=== PATIENT | female | born 1950 | race Caucasian/White ===

== ENCOUNTER 2024-03-30 08:32 | Outpatient (CLI) | payer MEDICARE, OTHER, SELFPAY ==
--- NOTE | ~2024-03-30 | MM_ITS ---
EXAMINATION: MM screening sandra BI w nely HISTORY: Screening TECHNIQUE: Craniocaudal and mediolateral oblique 3-D tomosynthesis images were obtained and synthetic 2-D images were generated. CAD analysis was submitted and interpreted. COMPARISON: No prior mammogram is available for comparison at this institution. BREAST PARENCHYMAL COMPOSITION: Not dense: There are scattered areas of fibroglandular density. FINDINGS: There is no evidence of suspicious mass, calcification, or architectural distortion to sugg est malignancy in either breast. There has been no suspicious interval change. IMPRESSION: 1. No mammographic evidence of malignancy. 2. Recommend routine screening mammography in one year. BI-RADS Category 1: Negative Reviewed, dictated and finalized at location B. NE PAINTER
== END 2024-03-30 08:33 | disposition home or self-care (01) ==
PROVIDERS: Visit Provider Internal Medicine
DX: Z12.31 Encounter for screening mammogram for malignant neoplasm of breast (principal)
CPT/HCPCS: 77063; 77067

== ENCOUNTER 2024-05-18 08:54 | Outpatient (CLI) | payer MEDICARE, OTHER, SELFPAY ==
--- NOTE | ~2024-05-18 | DEXA_ITS ---
Bone Density Report Name: LUMA ACOSTA Age: 73 Sex: Female Ethnicity: White Date of : 1950 Indication: postmenopausal; screening for osteoporosis; Referring Provider: RASHAUN, MICHEAL Study: Bone densitometry was performed. Exam Date: May 18, 2024 Accession number: [id number] Bone Density: Region BMD T-score Z-score Classification AP Spine(L1-L4) 0.473 -5.2 -2.9 Osteoporosis Femoral Neck (Left) 0.524 -2.9 -0.9 Osteoporosis Total Hip (Left) 0.713 -1.9 -0.2 Osteopenia Femoral Neck (Right) 0.591 -2.3 -0.3 Osteopenia Total Hip (Right) 0.750 -1.6 0.1 Osteopenia Total Hip Mean 0.731 -1.8 -0.1 Osteopenia World Health Organization criteria for BMD impression classify patients as: Normal (T-score at or above -1.0), Osteopenia (T-score between -1.0 and -2.5), or Osteoporosis (T-score at or below -2.5). 10-year Fracture Risk: FRAX not reported because: Some T-score for Spine Total or Hip Total or Femoral Neck at or below -2.5 Clinical Information Provided by Patient: Menopause Age: 50 Impression: The patient has osteoporosis, based on the Total Spine T-score. Discussion: HIGH RISK OF FRACTURE. BONE DENSITY IS UNDESIRABLY LOW AT ONE OR MORE SKELETAL SITES, CONSISTENT WITH OSTEOPOROSIS. ALSO, BONE DENSITY IS LOWER THAN EXPECTED FOR AGE AND SEX AT ONE OR MORE SKELETAL SITES; RECOMMEND A DILIGENT SEARCH FOR SECONDARY CAUSES OF BONE LOSS. This patient's lowest T-score meets the World Health Organization's (WHO) criteria for osteoporosis at one or more sites (T-score -2.5 or below). In untreated patients, the risk of osteoporotic fracture increases approximately two-fold for each 1.0 SD decrease in T-score. Low bone density is not the only risk factor for fracture; also consider factors such as patient's age, frailty or poor health, risk of falling, risk of injury, previous osteoporotic fracture, family history of osteoporosis, cigarette smoking, low body weight, etc. Not everyone with low bone mineral density has osteoporosis; osteomalacia and other metabolic bone disorders should also be considered. Patients who have osteoporosis should be evaluated for specific diseases and conditions (secondary causes) that may cause or contribute to bone loss. The [place] Association of Clinical Endocrinologists (AACE) and National Osteoporosis Foundation (NOF) recommend pharmacologic intervention for all postmenopausal women whose T-score is in this range. Also, this patient's bone mineral density is below the range considered normal for healthy age-, sex-, and race-matched controls at least one site (Z-score -2.0 or below). This warrants careful evaluation for diseases and conditions that may contribute to accelerated bone loss. The patient should follow a healthful lifestyle (good nutrition with adequate calcium and vitamin D, and appropriate weight-bearing exercise). Follow-Up: Consider a repeat BMD and Vertebral Fracture Assessment (VFA) exam in 2 years or sooner if medically necessary, to reassess this patient's status. Reported by: BRISA on 05/18/2024 9:43:00 AM. Reviewed, dictated and finalized at location APatrice SHETTY
--- OUTSIDE RECORDS SUMMARY | 2024-05-20 16:28 | XMS_ITS | Clinical Summary ---
Author Organization [facility] Address [facility]. [place], [place] [address] [place] [address] Care Team Providers Care Clerical Transcriber Name Role Phone Walker Sanches MD Primary Care Provider Allergies No known active allergies Medications ketoconazole (NIZORAL) 2 % creamIndications:S eborrheic dermatitis Apply topically daily. 60 g 1 4 Active triamcinolone (KENALOG) 0.1 % creamIndications:E czema, unspecified type Apply topically 2 (two) times daily. Apply on the back on arms and back and legs. 453.6 g 4 Active atorvastatin (LIPITOR) 10 MG tabletIndications: ASCVD (arteriosclerotic cardiovascular disease),Mixed hyperlipidemia Take 1 tablet (10 mg total) by mouth nightly at bedtime. 90 tablet 1 4 Active losartan (COZAAR) 25 MG tabletIndications: Primary hypertension Take 1 tablet (25 mg total) by mouth daily. 90 tablet 1 4 Active omeprazole (PRILOSEC) 40 MG capsuleIndications :Gastroesophageal reflux disease without esophagitis Take 1 capsule (40 mg total) by mouth daily. 90 capsule 4 Active Active Problems No known active problems Social History Tobacco Use Types Packs/Day Years Used Date Smoking Tobacco: Never Smokeless Tobacco: Never Tobacco Cessation:Counseling Given: Yes Comments:Counseled by Dr. Sanches. AUDIT-C Answer Date Recorded Q1: How often do you have a drink containing alcohol? Never 10/24/2023 Q2: How many drinks containi ng alcohol do you have on a typical day when you are drinking? Patient does not drink Q3: How often do you have si x or more drinks on one occasion? Never 10/24/2023 Comments Unknown Sex and Gender Information Value Date Recorded Sex Assigned at Not on file Legal Sex Female 10:07 AM CDT Gender Identity Not on file Sexual Orientation Not on file Last Filed Vital Signs Vital Sign Reading Time Taken Comments Blood Pressure 143/86 12/24/2023 9:54 AM CDT Pulse 62 12/24/2023 9:21 AM CDT Temperature 36.7 ??C (98 ??F) 12/24/2023 9:21 AM CDT Respiratory Rate 16 12/24/2023 9:21 AM CDT Oxygen Saturation 97% 12/24/2023 9:21 AM CDT Inhaled Oxygen Concentration - - Weight 72.7 kg (160 lb 3.2 oz) 12/24/2023 9:21 A M CDT Height 165.1 cm (5' 5 ) 12/24/2023 9:21 AM CDT Body Mass Index 26.66 12/24/2023 9:21 AM CDT Plan of Treatment Health Maintenance Due Date Last Done Comments Colorectal Cancer Screening Colonoscopy (10 Years) 1950 PHQ-2 (Physician [place]) 1962 DTaP, Tdap and Td Vaccines (1 - Tdap) 1969 Zoster Vaccines (1 of 2) 2000 RSV Immunization or 60+ Years (1 - Risk 60-74 years 1-dose series) 2010 Annual Medicare Wellness Visit 07/27/2015 Dexa Scan (General) 07/27/2015 COVID-19 Vaccine ( - season) 2023 03/21/2021, 07/20/2020, 06/27/2020 Influenza Adult (#1) 2024 02/22/2019, 02/09/2018, 01/31/2017, Additional history exists Mammogram Screening 03/30/2026 03/30/2024, 10/20/2018, 10/09/2018, Additional history exists Pneumococcal Vaccine: 65+ Years Completed 01/13/2020, 10/01/2018 Hepatitis C Completed 10/24/2023 Meningococcal B Vaccine Aged Out No l onger eligible based on patient's age to complete this topic Meningococcal Vaccine Aged Out No jordan ad eligible based on patient's age to complete this topic RSV Immunizations Under 20 Months Aged Out No longer eligible based on patient's age to complete this topic Procedures Procedure Name Priority Date/Time Associated Diagnosis Comments MG SCREENING W DISHA TEDDY DIGI Routine 03/30/2024 12:00 AM LEATHER TOOLER Encounter for screening mammogram for malignant neoplasm of breast HEPATITIS C ANTIBODY Routine 10/24/2023 10:59 AM CDT Annual physical exam Establishing care with new doctor, encounter for General medical exam Encounter for hepatitis C screening test for low risk patient from Last 3 Months or Most Recently Relevant to Health Maintenance Results * MG SCREENING W DISHA TEDDY DIGI (03/30/2024 12:00 AM LEATHER TOOLER) Anatomical Region Laterality Modality Breast Bilateral Mammography 03/30/2024 us Walker Sanches MD MAMMO Edited Result - Final * HEPATITIS C ANTIBODY (10/24/2023 10:59 AM CDT) HEPATITIS C AB NON-REACTI VE NON-REACT REBECCA 10/24/2023 10:[address] [facility] Comment: ANTIBODIES TO HCV NOT DETECTED. DOES NOT EXCLUDE THE POSSIBILITY OF EXPOSURE TO HCV. 10/24/2023 10:5 9 AM CDT us Walker Sanches MD LABORATORY Final Result [facility] [address] [place] [address], [place] [phone] [id number] from Last 3 Months or Most Recently Relevant to Health Maintenance Insurance MEDICARE [facility] Care Teams Clerical Transcriber Relationship Specialty Start Date End Date Walker Sanches MD [address] [address] PCP - General INTERNAL MEDICINE 09/03/23
--- OUTSIDE RECORDS SUMMARY | 2024-05-20 16:28 | XMS_ITS | Continuity of Care Document ---
Author Organization [facility] Address [address] [place] [address] Phone Care Team Providers Care Grounds Worker Name Role Phone Unavailable Unavailable Unavailable Allergies, Adverse Reactions, Alerts Substance Reaction Status Criticality No Known Allergies Active No Inform ation Medications Medication Instructions Dosage Effective Dates (start - stop) Status Comments Refresh Tears 0.5 % Eye Drops 1 gtt prn ou - Active Procedures Procedure Date EYE EXAM ESTABLISHED PATIENT, MEDICAL Ma REFRACTION UPDATE EYE EXAM ESTABLISHED PAT, MEDICAL Advance Directives Directive Yes / No Effective Date File Name No Information Encounters Encounter Description Practice Location Reason(s) For Visit Diagnoses Date Provider Providers Copied on Encounter [facility], [address] [place] [address], [id number] , [place] tel:[phone] [facility] No Information 5 No Information [facility], [address] [place] [address], [id number] , [place] tel:[phone] [facility] no problems with V/A and no complaints (chief complaint)d ryness (chief complaint) Senile nuclear sclerosisPresbyo crystal 0 4 No Information Referring Provider: Kassie Steele, [address] [place] [address], [id number]. tel:[phone] [facility], [address] [place] [address], [id number] , tel:[phone] [facility] red eye (chief complaint) Conjunctival hemorrhage [address], [place], [id number], [place]. tel:[phone] Referring Provider: Kassie Steele, [address] [place], [address]. tel:[phone] Family History Family Member Type Diagnosis Age At Onset Problem (finding) No Family history of Gl aucoma Problem (finding) No Family history of Di abetes mellitus Problem (finding) Family history of Arthr itis Problem (finding) Family history of strok e Problem (finding) Family history of HBP Problem (finding) No Family history of Re spiratory Disease Problem (finding) No Family hist ory of Macular Degeneration Problem (finding) No Family history of Ca taracts Problem (finding) No Family history of As thma Problem (finding) Family history of Heart Disease Problem (finding) No Family history of St rabismus Problem (finding) Problem (finding) No Family history of Re tinal Disorders Payers Payer name Insurance type Covered democrat ID Authoriza tion(s) No Information Social History Type Description Quantity Date Captured Comments Sex Female Smoking Status No Information Chief Complaint And Reason For Visit No Information Reason For Referral Reason For Referral No Information History Of Present Illness Encounter Date Complaint History Of Prese nt Illness No Information Functional Status Date Functional Assessmen t No Information Instructions Date Instruction Additional Infor lele - Return in 1 year w [facility] for Ref T & D. 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 Condition: established, stable. Presbyopia OU. Condition: established, stable. - Eyes look very good and healthy. Little change in gls - less strong. May update gls to help pt see better. Has early cataracts - will watch for now. Have primary care doctor look into this phenomenom when pt gets upset. Discussed ocular migraine symptoms. Related to Senile nuclear sclerosis - Return in 1-2 jan hs with [facility] for Ref T & D. Related to Conjunctival hemorrhage Conjunctival hemorrh age OD. Condition: will improve. - You have a broken blood vessel on the surface of the eye. This can be caused from many things - coughing, straining, rubbing the eye. This will clear on its own. No treatment needed. Can use artificial tears for comfort if needed. You have not had a complete exam for quite a while - recommend doing that at your convenience. Educational materials provided:none needed. Related to Conjunctival hemorrhage Assessments Type Assessment Date No Information Patient Care Teams Name Effective Dates (start - stop) Status Members No Information
--- OUTSIDE RECORDS SUMMARY | 2024-05-20 16:28 | XMS_ITS | Clinical Summary ---
Author Organization [facility] Address [address] [place] [address] Care Team Providers Care Permastone Mechanic Name Role Phone Unavailable Primary Care Provider Unavailabl e Allergies No known active allergies Medications Ibuprofen 200 MG PO CAPS Take 2 Caps by mouth daily. Active Multiple Vitamins-Mineral s (MULTIVITAMIN & MINERAL PO) Take by mouth daily. Active ascorbic acid 500 MG PO TABS Take 500 mg by mouth daily. Active Active Problems Problem Noted Date Diagnosed Date Preventative health care (sees Gyne) 08/18/2009 Family History Medical History Relation Name Comments Congestive Heart Failure Brother Coronary Artery Disease Brother in 4 0's Coronary Artery Disease Father Congestive Heart Failure Mother fro m Rheumatic fever Hypertension Sister Relation Name Status Comments Brother Father Mother Sister Social History Tobacco Use Types Packs/Day Years Used Date Smoking Tobacco: Never Alcohol Use Standard Drinks/Week Comments No 0 (1 standard drink = 0.6 oz pur e alcohol) Comments No Sex and Gender Information Value Date Recorded Sex Assigned at Not on file Legal Sex Female 2:52 AM RUBBER WORKER Gender Identity Not on file Sexual Orientation Not on file Occupation Industry Job Start Date Job End Date Homemaker Not on file Not on file Not on file Last Filed Vital Signs Vital Sign Reading Time Taken Comments Blood Pressure 136/84 04/07/2012 1:25 PM RUBBER WORKER Pulse 72 04/07/2012 1:25 PM RUBBER WORKER Temperature 36.6 ??C (97.9 ??F) 04/07/2012 1:25 PM CS T Respiratory Rate 18 04/07/2012 1:25 PM RUBBER WORKER Oxygen Saturation - - Inhaled Oxygen Concentration - - Weight 74.4 kg (164 lb) 04/07/2012 1:25 PM RUBBER WORKER Height - - Body Mass Index - - Plan of Treatment Health Maintenance Due Date Last Done Comments DEXA Bone Density 1950 Hepatitis C Virus (HCV) Screening 1950 TdaP Immunization 1950 Colonoscopy 07/27/1995 Colorectal Cancer Screening 07/27/1995 Cologuard 2000 Immunochemical Fecal Occult Blood 2000 Mammogram 2000 Pneumococcal Immunization (5 0+ years) (1 of 1 - PCV) 2000 Zoster Immunization (1 of 2) 2000 Influenza Immunization (#1) 2023 SARS-COV-2 Immunization ( - 2023-25 season) 2023 Respiratory Syncytial Virus (RSV) Immunization (Adult) (1 - 1-dose 75+ series) 2025 Hepatitis B Immunization Aged Out No longer eligible based on patient's age to complete this topic Meningococcal Immunization (ACWY) Aged Out No longer eligible based on patient's age to complete this topic Rotavirus Immunization Aged Out No lo nger eligible based on patient's age to complete this topic Insurance [employer]
== END 2024-05-18 08:55 | disposition home or self-care (01) ==
PROVIDERS: Visit Provider Internal Medicine
DX: Z78.0 Asymptomatic menopausal state (principal); M81.0 Age-related osteoporosis without current pathological fracture; M85.852 Other specified disorders of bone density and structure, left thigh; M85.851 Other specified disorders of bone density and structure, right thigh
CPT/HCPCS: 77080